=== PATIENT | female | born 1940 | race African-American/Black ===

== ENCOUNTER 2022-10-27 20:49 | Inpatient (IN) | payer MEDICARE, MEDICAID ==
[~2022-10-27] VITALS: Ht 170.2 cm; Wt 85.7 kg
[2022-10-27 21:01] VITALS: O2SAT 97
[2022-10-27 23:29] LABS: BASOPHILS % 0.8 % (0.0-2.0); EOSINOPHILS % 10.6 % (0.0-5.0); HEMATOCRIT. 40.9 % (36.0-48.0); HEMOGLOBIN. 13.1 g/dL (12.0-16.0); LYMPHOCYTES % 22.1 % (20.0-50.0); MEAN CORPUSCULAR HEMOGLOBIN 29.4 pg (28.0-32.0); MEAN CORPUSCULAR VOLUME 91.3 fL (81.0-99.0); MONOCYTES % 8.6 % (2.0-8.0); NEUTROPHILS % 57.9 % (40.0-76.0); PLATELET 306 x1000/uL (130-400); RED BLOOD CELL COUNT 4.48 mill/uL (4.2-5.4); RED CELL DISTRIBUTION WIDTH 14.9 % (11.6-14.6)
[2022-10-27 23:39] LABS: PROTHROMBIN TIME 10.4 sec (9.6-11.0)
[2022-10-27 23:45] LABS: CHLORIDE 107 mEq/L (98-107)
[2022-10-28] MEDS ORDERED: ONDANSETRON HCL 4MG/2ML INJ IV PRN (00:30)
[2022-10-28] MEDS ORDERED: IPRATROPIUM/ALBUTEROL 0.5-3(2.5)MG/3ML NEB HHN PRN (00:30)
[2022-10-28] MEDS ORDERED: ACETAMINOPHEN 650MG/20.3ML UDC GT PRN (00:30)
[2022-10-28] MEDS ORDERED: DEXTROSE 50% WATER 50ML SYRINGE IV PRN (01:45)
[2022-10-28] MEDS: DEXT 5%/0.45% NACL 1000ML 1,000 ML IV SCH ×3 (02:30→21:31)
[2022-10-28 04:30] LABS: CLARITY URINE CLOUDY (CLEAR); COLOR URINE DARK YELLOW (YELLOW); KETONES URINE TRACE (NEGATIVE); LEUKOCYTE ESTERASE URINE 3+ (NEGATIVE); NITRITE URINE NEGATIVE (NEGATIVE); OCCULT BLOOD URINE NEGATIVE (NEGATIVE); PH URINE 6.5 (4.5-8.0); PROTEIN URINE TRACE (NEGATIVE); SPECIFIC GRAVITY URINE 1.023 (1.005-1.030)
[2022-10-28 05:00] VITALS: BP 125/51; PULSE 89; RESP 18; TEMP 98.2
[2022-10-28] MEDS: BLOOD SUGAR DIAGNOSTIC STRIP TEST SCH ×3 (06:27→21:00)
[2022-10-28] MEDS ORDERED: CEFTRIAXONE 1GM PREMIX 50 ML IV SCH (07:30)
[2022-10-28 08:00] VITALS: BP 115/57; PULSE 86; RESP 19; TEMP 96.8
[2022-10-28] MEDS ORDERED: HYDRALAZINE 20MG/ML VIAL IV PRN (09:15)
[2022-10-28] MEDS ORDERED: HYDRALAZINE 10 MG in SODIUM CHLORIDE 0.9% 49.5 ML IV PRN (09:15)
[2022-10-28] MEDS ORDERED: DEXT 5%/0.45% NACL 1000ML 1,000 ML IV SCH (09:15)
[2022-10-28] MEDS: CEFTRIAXONE 1,000 MG in DEXTROSE 5% WATER 50 ML IV SCH (09:44)
[2022-10-28 12:00] VITALS: BP 129/59; PULSE 68; RESP 20; TEMP 97.1
[2022-10-28] MEDS: INSULIN LISPRO 100 UNITS/ML SUBCUT SCH ×2 (14:47→21:00)
[2022-10-28] MEDS ORDERED: DIATR MEGLU/DIATRIZOATE SOLN 30ML GT NR (15:00)
[2022-10-28 16:00] VITALS: BP 160/62; PULSE 68; RESP 16; TEMP 97.5
[2022-10-28] MEDS ORDERED: DIATR MEGLU/DIATRIZOATE SOLN 30ML ONE (16:42)
[2022-10-28 20:00] VITALS: BP 100/56; PULSE 76; RESP 20; TEMP 97.7
[2022-10-29] VITALS: BP 110/70; PULSE 79; RESP 20; TEMP 97.9
[2022-10-29 04:00] VITALS: BP 155/58; PULSE 76; RESP 20; TEMP 96.4
[2022-10-29 07:29] LABS: BASOPHILS % 0.8 % (0.0-2.0); EOSINOPHILS % 10.5 % (0.0-5.0); HEMATOCRIT. 38.8 % (36.0-48.0); HEMOGLOBIN. 12.7 g/dL (12.0-16.0); LYMPHOCYTES % 23.1 % (20.0-50.0); MEAN CORPUSCULAR HEMOGLOBIN 29.6 pg (28.0-32.0); MEAN CORPUSCULAR VOLUME 90.2 fL (81.0-99.0); MEAN PLATELET VOLUME 9.4 fl (7.4-10.4); MONOCYTES % 7.6 % (2.0-8.0); PLATELET 271 x1000/uL (130-400); RED CELL DISTRIBUTION WIDTH 14.7 % (11.6-14.6)
[2022-10-29 07:41] LABS: CHLORIDE 109 mEq/L (98-107)
[2022-10-29 08:00] VITALS: BP 132/58; PULSE 59; RESP 19; TEMP 97.5
[2022-10-29] MEDS: PANTOPRAZOLE SODIUM 40 MG/VIAL IV SCH ×2 (09:08→09:12)
[2022-10-29] MEDS: CEFTRIAXONE 1,000 MG in DEXTROSE 5% WATER 50 ML IV SCH (09:08)
[2022-10-29 12:00] VITALS: BP 152/56; PULSE 86; RESP 18; TEMP 95.5
[2022-10-29 16:00] VITALS: BP 118/56; PULSE 59; RESP 19; TEMP 96.6
[2022-10-29 20:00] VITALS: BP 131/54; PULSE 67; RESP 18; TEMP 97.7
[2022-10-30] VITALS: BP 141/60; PULSE 69; RESP 18; TEMP 97.6
[2022-10-30 06:00] VITALS: BP 141/52; PULSE 71; RESP 18; TEMP 96.4
[2022-10-30 08:00] VITALS: BP 124/50; PULSE 64; RESP 18; TEMP 97.8
[2022-10-30] MEDS: CEFTRIAXONE 1,000 MG in DEXTROSE 5% WATER 50 ML IV SCH (09:47)
[2022-10-30] MEDS: FAMOTIDINE 20MG/2ML VIAL IV SCH ×2 (09:47→21:47)
[2022-10-30 12:00] VITALS: BP 120/42; PULSE 64; RESP 18; TEMP 97.8
[2022-10-30] MEDS ORDERED: HYDRALAZINE 10 MG in SODIUM CHLORIDE 0.9% 49.5 ML IV PRN (14:30)
[2022-10-30] MEDS ORDERED: HYDRALAZINE 20MG/ML VIAL IV PRN (14:30)
[2022-10-30 16:00] VITALS: BP 122/48; PULSE 68; RESP 20; TEMP 98.1
[2022-10-30 20:00] VITALS: BP 118/67; PULSE 67; RESP 20; TEMP 98.8
[2022-10-31] VITALS: BP 131/50; RESP 20; TEMP 96.6
[2022-10-31 04:00] VITALS: BP 94/64; PULSE 63; RESP 20; TEMP 97.7
[2022-10-31 06:31] LABS: BASOPHILS % 1.4 % (0.0-2.0); HEMOGLOBIN. 12.5 g/dL (12.0-16.0); LYMPHOCYTES % 33.6 % (20.0-50.0); MEAN CORPUSCULAR HEMOGLOBIN 29.7 pg (28.0-32.0); MEAN CORPUSCULAR VOLUME 90.4 fL (81.0-99.0); MEAN PLATELET VOLUME 9.5 fl (7.4-10.4); MONOCYTES % 10.2 % (2.0-8.0); NEUTROPHILS % 42.8 % (40.0-76.0); PLATELET 273 x1000/uL (130-400); RED BLOOD CELL COUNT 4.21 mill/uL (4.2-5.4); RED CELL DISTRIBUTION WIDTH 15.2 % (11.6-14.6)
[2022-10-31 06:40] LABS: CHLORIDE 111 mEq/L (98-107)
[2022-10-31 08:00] VITALS: BP 108/57; PULSE 69; RESP 17; TEMP 97.9
[2022-10-31] MEDS: CEFTRIAXONE 1,000 MG in DEXTROSE 5% WATER 50 ML IV SCH (08:59)
[2022-10-31] MEDS: FAMOTIDINE 20MG/2ML VIAL IV SCH (09:00)
[2022-10-31 12:00] VITALS: BP 112/65; PULSE 75; RESP 17; TEMP 97.5
[2022-10-31 16:00] VITALS: BP 119/47; PULSE 68; RESP 20; TEMP 98.1
== END 2022-10-31 17:45 | DRG 327 ==
LOC: ER 20:49 → EDBD 20:49 → MICUSO 10-28 → 6EST 10-28 04:54
PROVIDERS: ADMIT Internal Medicine; ATTEND Internal Medicine
PROC: 0DP63UZ Removal of Feeding Device from Stomach, Percutaneous Approach (ICD-10-PCS; principal; 2022-10-31)
PROC: 0DH63UZ Insertion of Feeding Device into Stomach, Percutaneous Approach (ICD-10-PCS; 2022-10-31)
DX: K94.23 Gastrostomy malfunction (principal); E44.1 Mild protein-calorie malnutrition; N39.0 Urinary tract infection, site not specified; I10 Essential (primary) hypertension; K80.20 Calculus of gallbladder without cholecystitis without obstruction; E11.65 Type 2 diabetes mellitus with hyperglycemia; F03.90 Unspecified dementia, unspecified severity, without behavioral disturbance, psychotic disturbance, mood disturbance, and anxiety; E88.09 Other disorders of plasma-protein metabolism, not elsewhere classified; Z20.822 Contact with and (suspected) exposure to COVID-19; Z86.73 Personal history of transient ischemic attack (TIA), and cerebral infarction without residual deficits; Z68.29 Body mass index [BMI] 29.0-29.9, adult
CPT/HCPCS: 36415; 74018; 80048; 80053; 81003; 82962; 83036; 85025; 85379; 86850; 86900; 87426; 93005; 97162; 97166; 99285; C9113; J0696; J1815; J3490; J7060; Q9963; A4315

== ENCOUNTER 2023-04-20 06:53 | Emergency (ER) | payer MEDICARE, MEDICAID ==
[2023-04-20 07:43] VITALS: BP 107/65
[2023-04-20] MEDS ORDERED: DIATR MEGLU/DIATRIZOATE SOLN 30ML ONE (10:54)
[2023-04-20 15:53] VITALS: PULSE 72; RESP 14; TEMP 97.2
== END 2023-04-20 15:55 ==
LOC: ER 07:13
DX: K94.23 Gastrostomy malfunction (principal); E11.9 Type 2 diabetes mellitus without complications; K21.9 Gastro-esophageal reflux disease without esophagitis; I10 Essential (primary) hypertension; F19.90 Other psychoactive substance use, unspecified, uncomplicated; D64.9 Anemia, unspecified; F03.90 Unspecified dementia, unspecified severity, without behavioral disturbance, psychotic disturbance, mood disturbance, and anxiety; Z98.890 Other specified postprocedural states
CPT/HCPCS: 99284; 43762; 74018; Q9963; 99283